=== PATIENT | male | born 1970 | race Hispanic/Latino ===

== ENCOUNTER 2017-11-22 20:57 | Emergency (ER) | payer SELFPAY ==
[2017-11-22 21:22] VITALS: BMI 27.3
[2017-11-22 21:25] VITALS: TEMP 99.5
--- NOTE | 2017-11-22 21:51 | ED PDOC ---
Arrival/HPI <LutherTrae - Last Filed: 11/22/17 22:10> - General Historian: Patient <Paco Hassan A - Last Filed: 11/23/17 01:34> - General Chief Complaint: Bite Time Seen by Provider: 11/22/17 21:23 - History of Present Illness Narrative History of Present Illness (Text): 11/22/17 21:47 46yo male with no past medical history who present with complaint of rash to his left posterior thigh. States he noticed it yesterday. The rash became itchy and painful today. He states he was out on the grass over a week ago and not sure if he was bitten by a tick. He denies fever, chills, focal weakness, nausea , vomiting, any other complaint. (Paco Hassan A) Past Medical History - Provider Review Nursing Documentation Reviewed: Yes - Psychiatric Hx Substance Use: No - Anesthesia Hx Anesthesia: No <MoPaco Allen - Last Filed: 11/23/17 01:34> Family/Social History - Physician Review Nursing Documentation Reviewed: Yes Family/Social History: Unknown Family HX Smoking Status: Current Some Days Smoker Hx Alcohol Use: No Hx Substance Use: No <MoPaco A - Last Filed: 11/23/17 01:34> Allergies/Home Meds <LutherTrae - Last Filed: 11/22/17 22:10> <MoPaco A - Last Filed: 11/23/17 01:34> Allergies/Adverse Reactions: Allergies pollen extracts Allergy (Verified 11/22/17 21:26) ITCHING Review of Systems - Physician Review All systems were reviewed & negative as marked: Yes - Review of Systems Constitutional: Normal Eyes: Normal ENT: Normal Respiratory: Normal Cardiovascular: Normal Gastrointestinal: Normal Genitourinary Male: Normal Musculoskeletal: Normal Skin: Rash, Pruritis Neurological: Normal Endocrine: Normal Hemo/Lymphatic: Normal Psychiatric: Normal <MoPaco Allen - Last Filed: 11/23/17 01:34> Physical Exam Vital Signs Reviewed: Yes Temperature: Afebrile Blood Pressure: Normal Pulse: Regular Respiratory Rate: Normal Appearance: Positive for: Well-Appearing, Non-Toxic, Comfortable Pain Distress: None Mental Status: Positive for: Alert and Oriented X 3 - Systems Exam Head: Present: Atraumatic, Normocephalic Pupils: Present: PERRL Extroacular Muscles: Present: EOMI Conjunctiva: Present: Normal Mouth: Present: Moist Mucous Membranes Neck: Present: Normal Range of Motion Respiratory/Chest: Present: Clear to Auscultation, Good Air Exchange. No: Respiratory Distress, Accessory Muscle Use Cardiovascular: Present: Regular Rate and Rhythm, Normal S1, S2. No: Murmurs Abdomen: No: Tenderness, Distention, Peritoneal Signs Back: Present: Normal Inspection Upper Extremity: Present: Normal Inspection. No: Cyanosis, Edema Lower Extremity: Present: Normal Inspection. No: Edema Neurological: Present: GCS=15, CN II-XII Intact, Speech Normal Skin: Present: Warm, Dry, Rashes (Approximately 3 x 3cm circular shaped erythematous patch with mild central clearing noted to left proximal posterior thigh), Normal Color Psychiatric: Present: Alert, Oriented x 3, Normal Insight, Normal Concentration <Paco Hassan - Last Filed: 11/23/17 01:34> Vital Signs Temp Pulse Resp BP Pulse Ox 11/22/17 22:15 81 18 128/69 100 11/22/17 21:22 99.5 F 80 20 98 Medical Decision Making <Trae Sloan - Last Filed: 11/22/17 22:10> <Paco Hassan - Last Filed: 11/23/17 01:34> ED Course and Treatment: 11/23/17 01:32 PT present with rash that appears more like erythema migrans. Lyme test was ordered and pt was started on Doxycycline for the early benefit of abx treatment of lyme. He was advised to f/u with MR in 3days for result. Referred to his PMD/clinic. (Paco Hassan) - Medication Orders Current Medication Orders: Discontinued Medications Doxycycline Hyclate (Doryx) 100 mg PO STAT STA PRN Reason: Protocol Stop: 11/22/17 21:47 Last Admin: 11/22/17 21:57 Dose: 100 mg Ibuprofen (Motrin Tab) 600 mg PO STAT STA Stop: 11/22/17 21:59 Last Admin: 11/22/17 22:10 Dose: 600 mg MAR Pain/Vitals Document 11/22/17 22:10 AD (Rec: 11/22/17 22:11 AD [id number]) Pain Reassessment Is This A Pain ReAssessment? No Pain Scale Used Pain Scale Used Numeric - PA / LIAISON ENGINEER / Resident Statement / has reviewed & agrees with the documentation as recorded. / has examined the patient and agrees with the treatment plan. <Trae Sloan - Last Filed: 11/22/17 22:10> Disposition/Present on Arrival <Trae Sloan - Last Filed: 11/22/17 22:10> - Present on Arrival Any Indicators Present on Arrival: No History of DVT/PE: No History of Uncontrolled Diabetes: No Urinary Catheter: No History of Decub. Ulcer: No History Surgical Site Infection Following: None - Disposition Have Diagnosis and Disposition been Completed?: Yes Disposition Time: 22:00 Patient Plan: Discharge <Paco Hassan - Last Filed: 11/23/17 01:34> - Disposition Diagnosis: Rash Disposition: HOME/ ROUTINE Condition: STABLE Discharge Instructions (ExitCare): Skin Rash Additional Instructions: Follow up with medical record in 3days for your result Follow up with your doctor/clinic Return to Emergency department for any new or worsening symptoms Prescriptions: Doxycycline Hyclate [Doryx] 100 mg PO BID #42 cap Ibuprofen [Motrin Tab] 600 mg PO Q6 #20 tab Referrals: [facility] [place] [Outside] - Follow up with primary Forms: [employer] (Vietnamese)
[2017-11-22 22:52] VITALS: BP 128/69; PULSE 81; RESP 18; O2SAT 100
[2017-11-24 10:41] LABS: LYME IGM POSITIVE (NEGATIVE)
[2017-11-24 12:11] LABS: LYME IGG NEGATIVE (NEGATIVE)
== END 2017-11-22 22:15 | disposition home or self-care (01) ==
LOC: ED 20:57
DX: R21 Rash and other nonspecific skin eruption (principal)